=== PATIENT | male | born 1960 | race Asian ===

== ENCOUNTER 2020-03-12 08:21 | Emergency (ER) | payer MEDICARE, MEDICAID ==
[~2020-03-12] VITALS: Ht 157.5 cm; Wt 65.0 kg
[~2020-03-12 08:21] MED LIST: ASPI81TA30 PO; DILT-36 PO; FLO0.4C PO; MECL-159 PO
[2020-03-12] MEDS ORDERED: normal saline 1000ML IV soln IVB ONE (08:50)
[2020-03-12 09:09] LABS: HEMOGLOBIN 16.3 g/dl (14.0-17.9); PLATELET COUNT 155 X10'3 (140-440); WHITE BLOOD COUNT 5.9 X10'3 (4.5-11.0)
[2020-03-12 09:10] LABS: BASOPHILS % (AUTO) 0.6 % (0-1); EOSINOPHILS % (AUTO) 0.6 % (0-6); HEMATOCRIT 47.4 % (42.0-52.0); LYMPHOCYTES # (AUTO) 0.7 X10'3 (1.1-4.8); LYMPHOCYTES % (AUTO) 12.5 % (21-51); MEAN CORPUSCULAR HEMOGLOBIN 30.5 PG (27.0-31.0); MEAN CORPUSCULAR HGB CONC 34.3 g/dL (33.0-36.5); MEAN CORPUSCULAR VOLUME 88.9 FL (78-98); MONOCYTES # (AUTO) 0.6 X10'3 (0-0.9); MONOCYTES % (AUTO) 10.8 % (2-12); NEUTROPHILS # (AUTO) 4.5 X10'3 (1.8-7.7); NEUTROPHILS % (AUTO) 75.5 % (42-75); RED BLOOD COUNT 5.33 X10'6 (4.70-6.10); RED CELL DISTRIBUTION WIDTH 13.6 % (11.5-14.5)
[2020-03-12] MEDS ORDERED: ondansetron/PF 4mg/2ml inj IV ONE (09:10)
[2020-03-12 09:21] LABS: CLARITY,URINE CLEAR (Clear); COLOR,URINE YELLOW (Yellow); GLUCOSE, URINE NEGATIVE (Neg); KETONES,URINE TRACE mg/dl (Neg); LEUKOCYTE ESTERASE ,URINE NEGATIVE (Neg); NITRITES, URINE NEGATIVE (Neg); OCCULT BLOOD,URINE NEGATIVE (Neg); PROTEIN,URINE 30 mg/dl (Neg)
[2020-03-12 09:24] LABS: ALANINE AMINOTRANSFERASE 32 U/L (12-78); ALBUMIN 3.7 G/DL (3.4-5.0); ALKALINE PHOSPHATASE 59 IU/L (46-116); ANION GAP 10 (8-16); BILIRUBIN,TOTAL 0.4 MG/DL (0.1-1.0); BLOOD UREA NITROGEN 12 MG/DL (7-18); BUN/CREATININE RATIO 9.9 (5.4-32.0); CALCIUM 8.5 MG/DL (8.5-10.1); CHLORIDE 105 MMOL/L (99-107); CREATININE 1.21 MG/DL (0.60-1.10); GLUCOSE 130 MG/DL (70-104); SODIUM 140 MMOL/L (135-145); TOTAL CARBON DIOXIDE 24.7 MMOL/L (24-32); TOTAL PROTEIN 7.4 G/DL (6.4-8.2); eGFR 61 ML/MIN
[2020-03-12 09:25] LABS: UA COLLECTION TYPE CLN CATCH MIDSTREAM
[2020-03-12 09:27] LABS: BACTERIA,URINE FEW /HPF (Neg); HYALINE CASTS 0-3 /LPF (NEGATIVE); MUCUS STRANDS MODERATE /LPF (Neg); RBC,URINE NONE SEEN /HPF (0-2); SQUAMOUS EPITHELIAL CELL,UR FEW /LPF (FEW); WBC,URINE 0-4 /HPF (0-4)
[2020-03-12 09:38] LABS: C-REACTIVE PROTEIN 0.28 MG/DL (0.0-0.5); FERRITIN 823 NG/ML (26-388); MAGNESIUM 1.8 MG/DL (1.5-2.4)
[2020-03-12 09:40] LABS: ASPARTATE AMINO TRANSFERASE 27 U/L (10-37); LACTATE DEHYDROGENASE 230 U/L (85-227); POTASSIUM 3.8 MMOL/L (3.5-5.1)
--- NOTE | 2020-03-12 10:13 | NUR ---
pt is positive for covid 19.
[2020-03-12 11:15] VITALS: BP 110/74
== END 2020-03-12 11:00 | disposition home or self-care (01) ==
LOC: ER 08:22
DX: U07.1 COVID-19 (principal); R05 Cough; R50.9 Fever, unspecified; R10.84 Generalized abdominal pain; R19.7 Diarrhea, unspecified; R53.1 Weakness; R42 Dizziness and giddiness; R51.9 Headache, unspecified; I48.91 Unspecified atrial fibrillation; I10 Essential (primary) hypertension; G89.29 Other chronic pain; Z98.890 Other specified postprocedural states; Z88.1 Allergy status to other antibiotic agents; Z88.8 Allergy status to other drugs, medicaments and biological substances; Z79.82 Long term (current) use of aspirin; Z79.899 Other long term (current) drug therapy
CPT/HCPCS: 36415; 71045; 80053; 81001; 82728; 83605; 83615; 83735; 83880; 84145; 84484; 85025; 85384; 86140; 87040; 87635; 93005; 96361; 96374; 99285; C9803; J2405; J7030

== ENCOUNTER 2020-06-21 22:33 | Emergency (ER) | payer MEDICARE, MEDICAID ==
[~2020-06-21] VITALS: Ht 154.9 cm; Wt 68.2 kg
[2020-06-21 23:22] LABS: BASOPHILS % (AUTO) 0.4 % (0-1); EOSINOPHILS % (AUTO) 0.1 % (0-6); HEMATOCRIT 49.7 % (42.0-52.0); HEMOGLOBIN 16.9 g/dl (14.0-17.9); LYMPHOCYTES # (AUTO) 1.8 X10'3 (1.1-4.8); LYMPHOCYTES % (AUTO) 16.3 % (21-51); MEAN CORPUSCULAR HEMOGLOBIN 30.5 PG (27.0-31.0); MEAN CORPUSCULAR HGB CONC 34.1 g/dL (33.0-36.5); MEAN CORPUSCULAR VOLUME 89.4 FL (78-98); MEAN PLATELET VOLUME 7.3 FL (7.4-10.4); MONOCYTES # (AUTO) 0.9 X10'3 (0-0.9); MONOCYTES % (AUTO) 8.5 % (2-12); NEUTROPHILS # (AUTO) 8.1 X10'3 (1.8-7.7); NEUTROPHILS % (AUTO) 74.7 % (42-75); PLATELET COUNT 240 X10'3 (140-440); RED BLOOD COUNT 5.56 X10'6 (4.70-6.10); RED CELL DISTRIBUTION WIDTH 14.5 % (11.5-14.5); WHITE BLOOD COUNT 10.8 X10'3 (4.5-11.0)
[2020-06-21] MEDS ORDERED: mag hydrox/Alum hydrox/simeth 30ml oral suspension PO ONE (23:25)
[2020-06-21] MEDS ORDERED: normal saline 1000ML IV soln IVB ONE (23:25)
[2020-06-21] MEDS ORDERED: pantoprazole 40 MG vial IV ONE (23:25)
[2020-06-21] MEDS ORDERED: LIDOcaine Viscous 15ml cup MM ONE (23:25)
[2020-06-21 23:32] LABS: ALANINE AMINOTRANSFERASE 41 U/L (12-78); ALBUMIN 3.6 G/DL (3.4-5.0); ALKALINE PHOSPHATASE 57 IU/L (46-116); ANION GAP 7 (8-16); ASPARTATE AMINO TRANSFERASE 20 U/L (10-37); BILIRUBIN,TOTAL 0.4 MG/DL (0.1-1.0); BLOOD UREA NITROGEN 20 MG/DL (7-18); BUN/CREATININE RATIO 15.3 (5.4-32.0); CALCIUM 8.9 MG/DL (8.5-10.1); CHLORIDE 105 MMOL/L (99-107); CREATININE 1.31 MG/DL (0.60-1.10); GLUCOSE 141 MG/DL (70-104); POTASSIUM 3.8 MMOL/L (3.5-5.1); SODIUM 140 MMOL/L (135-145); TOTAL CARBON DIOXIDE 28.4 MMOL/L (24-32); TOTAL PROTEIN 7.3 G/DL (6.4-8.2); eGFR 56 ML/MIN
[2020-06-22 00:34] VITALS: BP 148/105
== END 2020-06-22 00:30 | disposition home or self-care (01) ==
LOC: ER 22:34
DX: R10.13 Epigastric pain (principal); R07.89 Other chest pain; R11.0 Nausea; R68.2 Dry mouth, unspecified; I48.91 Unspecified atrial fibrillation; I25.10 Atherosclerotic heart disease of native coronary artery without angina pectoris; I50.9 Heart failure, unspecified; E78.00 Pure hypercholesterolemia, unspecified; I25.2 Old myocardial infarction; G89.29 Other chronic pain; Z98.52 Vasectomy status; Z88.8 Allergy status to other drugs, medicaments and biological substances; Z79.82 Long term (current) use of aspirin; Z79.899 Other long term (current) drug therapy
CPT/HCPCS: 36415; 71045; 80053; 83880; 84484; 85025; 93005; 96374; 99285; C9113; J7030

== ENCOUNTER 2021-08-26 02:02 | Inpatient (IN) | payer MEDICARE, MEDICAID ==
[~2021-08-26] VITALS: Ht 157.5 cm; Wt 68.2 kg
[2021-08-26 03:04] LABS: BASOPHILS % (AUTO) 0.6 % (0-1); EOSINOPHILS # (AUTO) 0.2 X10'3 (0-0.9); EOSINOPHILS % (AUTO) 2.5 % (0-6); HEMATOCRIT 46.1 % (42.0-52.0); HEMOGLOBIN 15.8 g/dl (14.0-17.9); LYMPHOCYTES % (AUTO) 30.7 % (21-51); MEAN CORPUSCULAR HGB CONC 34.3 g/dL (33.0-36.5); MEAN CORPUSCULAR VOLUME 90.3 FL (78-98); MEAN PLATELET VOLUME 7.7 FL (7.4-10.4); MONOCYTES # (AUTO) 0.7 X10'3 (0-0.9); MONOCYTES % (AUTO) 10.2 % (2-12); NEUTROPHILS # (AUTO) 3.7 X10'3 (1.8-7.7); PLATELET COUNT 221 X10'3 (140-440); RED CELL DISTRIBUTION WIDTH 13.6 % (11.5-14.5); WHITE BLOOD COUNT 6.6 X10'3 (4.5-11.0)
[2021-08-26] MEDS ORDERED: mag hydrox/Alum hydrox/simeth 30ml oral suspension PO ONE (03:10)
[2021-08-26] MEDS ORDERED: LIDOcaine Viscous 15ml cup MM ONE (03:10)
[2021-08-26] MEDS ORDERED: nitroGLYCERIN 0.2mg/hour patch TD ONE (03:15)
[2021-08-26] MEDS ORDERED: aspirin 81mg tab.chew PO ONE (03:15)
[2021-08-26 03:41] LABS: ALANINE AMINOTRANSFERASE 23 U/L (12-78); ALBUMIN 3.8 G/DL (3.4-5.0); ALBUMIN/GLOBULIN RATIO 1.1 (1.1-1.5); ALKALINE PHOSPHATASE 48 IU/L (46-116); ANION GAP 4 (8-16); ASPARTATE AMINO TRANSFERASE 12 U/L (10-37); BILIRUBIN,TOTAL 0.6 MG/DL (0.1-1.0); BLOOD UREA NITROGEN 18 MG/DL (7-18); BUN/CREATININE RATIO 15.3 (5.4-32.0); CALCIUM 8.9 MG/DL (8.5-10.1); CHLORIDE 106 MMOL/L (99-107); CREATININE 1.18 MG/DL (0.60-1.10); GLUCOSE 99 MG/DL (70-104); POTASSIUM 3.5 MMOL/L (3.5-5.1); SODIUM 140 MMOL/L (135-145); TOTAL CARBON DIOXIDE 29.6 MMOL/L (24-32); TOTAL PROTEIN 7.2 G/DL (6.4-8.2); eGFR 63 ML/MIN
[2021-08-26 03:50] LABS: ETHANOL < 0.010 GM/DL (0.0-0.010)
[2021-08-26 04:00] LABS: C-REACTIVE PROTEIN < 0.05 MG/DL (0.0-0.5)
[2021-08-26] MEDS ORDERED: pantoprazole 40 MG vial IV SCH (04:20)
[2021-08-26] MEDS ORDERED: pantoprazole 40MG/NS 100ML BAG 100 ML IV ONE (04:20)
[2021-08-26] MEDS ORDERED: normal saline 1000ML IV soln IVB ONE (04:40)
[2021-08-26] MEDS ORDERED: enoxaparin 100mg/ml syringe SUBCUT ONE (04:40)
[2021-08-26] MEDS ORDERED: normal saline 1000ml 1,000 ML IV ONE (04:40)
[2021-08-26] MEDS ORDERED: enoxaparin 80mg/0.8ml syringe SUBCUT ONE (04:45)
[2021-08-26] MEDS ORDERED: mag hydrox/Alum hydrox/simeth 30ml oral suspension PO PRN (05:15)
[2021-08-26] MEDS ORDERED: magnesium hydroxide 30ml (MOM) UD suspension PO PRN (05:15)
[2021-08-26] MEDS ORDERED: morphine 2 MG/ML inj. syringe IV PRN (05:15)
[2021-08-26] MEDS ORDERED: acetaminophen 325mg tablet PO PRN (05:15)
[2021-08-26 07:22] LABS: URINE AMPHETAMINE SCREEN NEGATIVE (Neg); URINE BARBITUATE SCREEN NEGATIVE (Neg); URINE BENZODIAZEPINES SCREEN NEGATIVE (Neg); URINE CANNABINOID SCREEN POSITIVE (Neg); URINE COCAINE SCREEN NEGATIVE (Neg); URINE METHADONE SCREEN NEGATIVE (Neg); URINE OPIATE SCREEN NEGATIVE (Neg); URINE PHENCYCLIDINE SCREEN NEGATIVE (Neg)
--- NOTE | 2021-08-26 08:23 | NUR ---
Patient's will bring in patient's home medications.
[2021-08-26] MEDS ORDERED: METO-395 PO (09:19)
[2021-08-26] MEDS ORDERED: FINA5TAB11 PO (09:19)
[2021-08-26] MEDS ORDERED: OMEP40CA21 PO (09:19)
[2021-08-26] MEDS ORDERED: APIX5TAB3 PO (09:19)
[2021-08-26] MEDS: pantoprazole 40mg Tablet.DR PO SCH ×2 (09:52→20:18)
[2021-08-26] MEDS: docusate sod 100mg capsule PO SCH ×2 (09:52→20:00)
[2021-08-26] MEDS ORDERED: iohexol 300 MG/1 ML 50ml polymer ONE ×2 (10:06)
[2021-08-26] MEDS ORDERED: BENZ-49 PO (10:40)
[2021-08-26] MEDS ORDERED: HYDR-3964 PO (10:40)
[2021-08-26] MEDS ORDERED: pneumococcal 23-VAL P-sac vacc 25 mcg/0.5ml vial IMVAC ONE (12:00)
--- NOTE | 2021-08-26 12:35 | NUR ---
paged dr. mccollum, in room waiting to talk to
[2021-08-26] MEDS ORDERED: ATOR40TA72 PO (13:25)
[2021-08-26 14:18] LABS: AMYLASE 91 U/L (25-115); CHOL/HDL RATIO 5.1 (0.00-4.99); CHOLESTEROL 198 MG/DL (0-200); HDL CHOLESTEROL 39 MG/DL (35-60); LDL CHOLESTEROL 95 MG/DL (50-100); TRIGLYCERIDES 251 MG/DL (20-135)
[2021-08-26] MEDS ORDERED: benzonatate 100mg capsule PO PRN (16:20)
[2021-08-26] MEDS ORDERED: HYDROcodone/acetaminophen 5mg/325mg tablet PO PRN (16:20)
[2021-08-26] MEDS: acetaminophen 325mg tablet PO PRN (17:07)
--- NOTE | 2021-08-26 18:52 | NUR ---
Pt to MRI.
[2021-08-26] MEDS: apixaban 5mg tablet PO SCH (20:18)
--- NOTE | 2021-08-26 21:12 | NUR ---
Attempted to call Ortho to give report an hour ago. RN was busy and told to call back. This RN is attempting to reach the floor again with no success.
[2021-08-26 21:51] VITALS: BP 115/79
[2021-08-27] MEDS: morphine 2 MG/ML inj. syringe IV PRN ×3 (05:56→16:31)
[2021-08-27 06:00] VITALS: BP_SYST 115; BP_SYST 121; BP_DIAS 60; BP_DIAS 88
[2021-08-27 06:23] LABS: BASOPHILS % (AUTO) 0.3 % (0-1); EOSINOPHILS # (AUTO) 0.1 X10'3 (0-0.9); EOSINOPHILS % (AUTO) 1.9 % (0-6); HEMATOCRIT 42.4 % (42.0-52.0); HEMOGLOBIN 14.5 g/dl (14.0-17.9); LYMPHOCYTES # (AUTO) 1.4 X10'3 (1.1-4.8); LYMPHOCYTES % (AUTO) 18.8 % (21-51); MEAN CORPUSCULAR HEMOGLOBIN 30.8 PG (27.0-31.0); MEAN CORPUSCULAR HGB CONC 34.2 g/dL (33.0-36.5); MEAN CORPUSCULAR VOLUME 90.1 FL (78-98); MEAN PLATELET VOLUME 7.8 FL (7.4-10.4); MONOCYTES # (AUTO) 0.8 X10'3 (0-0.9); MONOCYTES % (AUTO) 10.3 % (2-12); NEUTROPHILS # (AUTO) 5.1 X10'3 (1.8-7.7); NEUTROPHILS % (AUTO) 68.7 % (42-75); PLATELET COUNT 204 X10'3 (140-440); RED BLOOD COUNT 4.71 X10'6 (4.70-6.10); RED CELL DISTRIBUTION WIDTH 13.5 % (11.5-14.5); WHITE BLOOD COUNT 7.4 X10'3 (4.5-11.0)
[2021-08-27 06:43] LABS: ALBUMIN 3.5 G/DL (3.4-5.0); ANION GAP 3 (8-16); BLOOD UREA NITROGEN 13 MG/DL (7-18); BUN/CREATININE RATIO 10.6 (5.4-32.0); CALCIUM 8.3 MG/DL (8.5-10.1); CHLORIDE 110 MMOL/L (99-107); CREATININE 1.23 MG/DL (0.60-1.10); GLUCOSE 93 MG/DL (70-104); POTASSIUM 3.8 MMOL/L (3.5-5.1); SODIUM 143 MMOL/L (135-145); TOTAL CARBON DIOXIDE 30.4 MMOL/L (24-32); eGFR 60 ML/MIN
[2021-08-27] MEDS: ondansetron/PF 4mg/2ml inj IV PRN ×2 (06:43→21:41)
[2021-08-27] MEDS: pantoprazole 40mg Tablet.DR PO SCH ×3 (07:30→08:00)
[2021-08-27] MEDS: finasteride 5mg tablet PO SCH (07:53)
[2021-08-27] MEDS: metoprolol succinate 25mg (24-HOUR) SR. Tablet PO SCH (07:53)
[2021-08-27] MEDS: atorvastatin 20mg tablet PO SCH (07:55)
[2021-08-27] MEDS: docusate sod 100mg capsule PO SCH ×2 (07:55→19:51)
[2021-08-27] MEDS: apixaban 5mg tablet PO SCH (08:00)
[2021-08-27] MEDS: aspirin 81mg tab.chew PO SCH (08:30)
[2021-08-27] MEDS ORDERED: NORMAL SALINE IV ONE (09:00)
[2021-08-27] MEDS ORDERED: SINCALIDE IV ONE (09:00)
[2021-08-27 09:19] LABS: ALANINE AMINOTRANSFERASE 20 U/L (12-78); ALBUMIN/GLOBULIN RATIO 1.1 (1.1-1.5); ALKALINE PHOSPHATASE 44 IU/L (46-116); ASPARTATE AMINO TRANSFERASE 15 U/L (10-37); BILIRUBIN,DIRECT 0.2 MG/DL (0-0.3); BILIRUBIN,TOTAL 0.8 MG/DL (0.1-1.0); TOTAL PROTEIN 6.7 G/DL (6.4-8.2)
--- NOTE | 2021-08-27 09:20 | NUR ---
Informed Dr. summers of holding Eliquis and Aspirin for any possible procedures.
[2021-08-27 10:00] VITALS: BP 114/78
--- NOTE | 2021-08-27 13:00 | NUR ---
Pt transferred to [facility] via w/c.
--- NOTE | 2021-08-27 15:40 | NUR ---
Pt transferred back from [facility] to via w/c to bed. Pt hungry and would like to eat. Dr. Ely paged for pt request.
[2021-08-27] MEDS: piperacillin/tazo 3.375gm/50ml 50 ML IV SCH ×2 (16:02→23:45)
[2021-08-27 17:00] VITALS: BP 124/79
[2021-08-27] MEDS: dextrose 5%-water 1,000 ML IV SCH (17:55)
[2021-08-27] MEDS: HYDROcodone/acetaminophen 5mg/325mg tablet PO PRN (19:13)
--- NOTE | 2021-08-27 19:24 | NUR ---
Patient in room ORTHO 4012. I have received report from DAVID Diez and had the opportunity to ask questions and assume patient care.
[2021-08-27] MEDS: pantoprazole 40MG/NS 100ML BAG 100 ML IV SCH (19:51)
[2021-08-27 22:00] VITALS: BP 118/71
[2021-08-28] VITALS (9 sets, daily range): BP systolic 107–129; BP diastolic 68–87
[2021-08-28] MEDS: HYDROcodone/acetaminophen 5mg/325mg tablet PO PRN ×4 (03:36→23:34)
[2021-08-28] MEDS: dextrose 5%-water 1,000 ML IV SCH ×2 (04:07→13:40)
[2021-08-28 06:11] LABS: H PYLORI ANTIBODY NEGATIVE (Neg)
[2021-08-28 06:20] LABS: BASOPHILS % (AUTO) 0.3 % (0-1); EOSINOPHILS # (AUTO) 0.2 X10'3 (0-0.9); EOSINOPHILS % (AUTO) 1.8 % (0-6); HEMATOCRIT 42.7 % (42.0-52.0); HEMOGLOBIN 14.5 g/dl (14.0-17.9); LYMPHOCYTES # (AUTO) 1.2 X10'3 (1.1-4.8); LYMPHOCYTES % (AUTO) 14.3 % (21-51); MEAN CORPUSCULAR HEMOGLOBIN 30.5 PG (27.0-31.0); MEAN CORPUSCULAR HGB CONC 33.9 g/dL (33.0-36.5); MEAN CORPUSCULAR VOLUME 89.8 FL (78-98); MEAN PLATELET VOLUME 7.9 FL (7.4-10.4); NEUTROPHILS # (AUTO) 5.9 X10'3 (1.8-7.7); NEUTROPHILS % (AUTO) 71.6 % (42-75); PLATELET COUNT 195 X10'3 (140-440); RED BLOOD COUNT 4.76 X10'6 (4.70-6.10); RED CELL DISTRIBUTION WIDTH 13.6 % (11.5-14.5); WHITE BLOOD COUNT 8.2 X10'3 (4.5-11.0)
--- NOTE | 2021-08-28 06:23 | NUR ---
Problems reprioritized. Patient report given, questions answered & plan of care reviewed with DAVID Bowman.
--- NOTE | 2021-08-28 06:30 | NUR ---
Patient in room ORTHO 4012. I have received report from Janet Linder and had the opportunity to ask questions and assume patient care.
[2021-08-28 06:32] LABS: ALBUMIN 3.3 G/DL (3.4-5.0); ANION GAP 7 (8-16); BLOOD UREA NITROGEN 8 MG/DL (7-18); BUN/CREATININE RATIO 6.3 (5.4-32.0); CALCIUM 8.6 MG/DL (8.5-10.1); CHLORIDE 105 MMOL/L (99-107); CREATININE 1.26 MG/DL (0.60-1.10); GLUCOSE 120 MG/DL (70-104); POTASSIUM 3.4 MMOL/L (3.5-5.1); SODIUM 139 MMOL/L (135-145); TOTAL CARBON DIOXIDE 26.9 MMOL/L (24-32); eGFR 58 ML/MIN
[2021-08-28] MEDS: ondansetron/PF 4mg/2ml inj IV PRN ×2 (07:40→15:50)
[2021-08-28] MEDS: atorvastatin 20mg tablet PO SCH (07:41)
[2021-08-28] MEDS: piperacillin/tazo 3.375gm/50ml 50 ML IV SCH ×2 (07:41→17:28)
[2021-08-28] MEDS: docusate sod 100mg capsule PO SCH ×2 (07:41→19:54)
[2021-08-28] MEDS: pantoprazole 40MG/NS 100ML BAG 100 ML IV SCH ×2 (07:41→21:26)
[2021-08-28] MEDS ORDERED: fentaNYL/PF 50MCG/1 ML 2ML syringe ONE (08:00)
[2021-08-28] MEDS ORDERED: MIDAZolam 1 MG/ML 5ML VIAL ONE (08:00)
[2021-08-28] MEDS ORDERED: LIDOcaine Viscous 15ml cup ONE (08:00)
[2021-08-28] MEDS: aspirin 81mg tab.chew PO SCH (08:30)
[2021-08-28] MEDS: finasteride 5mg tablet PO SCH (10:01)
[2021-08-28] MEDS: metoprolol succinate 25mg (24-HOUR) SR. Tablet PO SCH (10:03)
[2021-08-28 10:58] LABS: ALANINE AMINOTRANSFERASE 19 U/L (12-78); ALBUMIN/GLOBULIN RATIO 0.9 (1.1-1.5); ALKALINE PHOSPHATASE 49 IU/L (46-116); ASPARTATE AMINO TRANSFERASE 15 U/L (10-37); BILIRUBIN,DIRECT 0.2 MG/DL (0-0.3); BILIRUBIN,TOTAL 1.4 MG/DL (0.1-1.0); TOTAL PROTEIN 6.9 G/DL (6.4-8.2)
[2021-08-28] MEDS ORDERED: magnesium 2GM in 50ml NS 50 ML IV PRN (12:10)
[2021-08-28] MEDS ORDERED: potassium CL 10mEq/100ml bag 100 ML IV PRN (12:10)
[2021-08-28] MEDS ORDERED: magnesium 4gm in 100ml NS 100 ML IV PRN (12:10)
[2021-08-28] MEDS ORDERED: POTASSIUM BICARB 20meq eff tab 20 MEQ TABLET.EFF PO PRN (12:10)
[2021-08-28] MEDS ORDERED: magnesium Cl slow-release 64mg tablet PO PRN (12:10)
[2021-08-28 12:34] LABS: MAGNESIUM 2.4 MG/DL (1.5-2.4)
[2021-08-28] MEDS: POTASSIUM BICARB 20meq eff tab 20 MEQ TABLET.EFF PO PRN ×2 (12:45→19:54)
[2021-08-28] MEDS: metoclopramide 5 mg/ml inj IV PRN (12:50)
--- NOTE | 2021-08-28 17:30 | NUR ---
Patient and patient's very upset. Wanting to know why the patient is still NPO. Feeling attacked that they do not have an answer yet. RN paged and called Dr. Schroeder's phone and only received the voicemail, which the RN left a message. RN then page Dr. Cochran a second time to see if he had talked to Dr. Schroeder. RN informed the patient and patient's that RN has tried multiple times in reaching out. Patient's states that she feel discriminated against, and would like to talk to the charge nurse. The charge nurse came to bedside and talk about the plan. Charge nurse also paged Dr. Cochran, and Dr. Cochran said that if the patient would like to leave, it would be AMA. Charge nurse was able to get a hold of Dr. Schroeder and Dr. Schroeder said he is rounding tonight.
--- NOTE | 2021-08-28 18:30 | NUR ---
Patient in room ORTHO 4012. I have received report from DAVID Bowman and had the opportunity to ask questions and assume patient care.
[2021-08-28] MEDS: K and/or MAG REPLACEMENT MC SCH (20:00)
[2021-08-28] MEDS: diatr meglu/diatrizoate 30ml oral sol.-(3 dose) bottle PO SCH (21:26)
[2021-08-29] MEDS: POTASSIUM BICARB 20meq eff tab 20 MEQ TABLET.EFF PO PRN (00:12)
[2021-08-29] MEDS: piperacillin/tazo 3.375gm/50ml 50 ML IV SCH ×3 (00:12→16:21)
[2021-08-29] MEDS: HYDROcodone/acetaminophen 10/325mg tab PO PRN (03:22)
[2021-08-29] MEDS: dextrose 5%-water 1,000 ML IV SCH ×3 (03:24→16:22)
[2021-08-29 06:00] VITALS: BP 107/70
--- NOTE | 2021-08-29 06:31 | NUR ---
Problems reprioritized. Patient report given, questions answered & plan of care reviewed with DAVID Mendiola.
--- NOTE | 2021-08-29 06:53 | NUR ---
Patient in room ORTHO 4012. I have received report from Janet HERNANDEZ and had the opportunity to ask questions and assume patient care.
[2021-08-29] MEDS: metoprolol succinate 25mg (24-HOUR) SR. Tablet PO SCH (07:30)
[2021-08-29] MEDS: docusate sod 100mg capsule PO SCH ×2 (07:30→20:00)
[2021-08-29] MEDS: atorvastatin 20mg tablet PO SCH (07:31)
[2021-08-29] MEDS: diatr meglu/diatrizoate 30ml oral sol.-(3 dose) bottle PO SCH ×2 (07:31→09:31)
[2021-08-29] MEDS: finasteride 5mg tablet PO SCH (07:31)
[2021-08-29] MEDS: pantoprazole 40MG/NS 100ML BAG 100 ML IV SCH ×2 (07:34→20:17)
[2021-08-29] MEDS: K and/or MAG REPLACEMENT MC SCH ×2 (08:00→20:00)
[2021-08-29] MEDS: aspirin 81mg tab.chew PO SCH (08:30)
[2021-08-29] MEDS: ondansetron/PF 4mg/2ml inj IV PRN (09:25)
[2021-08-29] MEDS: HYDROcodone/acetaminophen 5mg/325mg tablet PO PRN ×3 (10:19→20:45)
[2021-08-29 10:26] VITALS: BP 120/80
[2021-08-29 10:28] LABS: BASOPHILS % (AUTO) 0.3 % (0-1); EOSINOPHILS # (AUTO) 0.2 X10'3 (0-0.9); EOSINOPHILS % (AUTO) 2.3 % (0-6); HEMATOCRIT 42.6 % (42.0-52.0); HEMOGLOBIN 14.4 g/dl (14.0-17.9); LYMPHOCYTES # (AUTO) 1.2 X10'3 (1.1-4.8); LYMPHOCYTES % (AUTO) 16.9 % (21-51); MEAN CORPUSCULAR HEMOGLOBIN 30.9 PG (27.0-31.0); MEAN CORPUSCULAR HGB CONC 33.8 g/dL (33.0-36.5); MEAN CORPUSCULAR VOLUME 91.3 FL (78-98); MEAN PLATELET VOLUME 7.8 FL (7.4-10.4); MONOCYTES # (AUTO) 0.7 X10'3 (0-0.9); NEUTROPHILS # (AUTO) 5.2 X10'3 (1.8-7.7); NEUTROPHILS % (AUTO) 70.5 % (42-75); PLATELET COUNT 199 X10'3 (140-440); RED BLOOD COUNT 4.67 X10'6 (4.70-6.10); RED CELL DISTRIBUTION WIDTH 13.5 % (11.5-14.5); WHITE BLOOD COUNT 7.3 X10'3 (4.5-11.0)
[2021-08-29 10:35] LABS: ALANINE AMINOTRANSFERASE 19 U/L (12-78); ALBUMIN 3.1 G/DL (3.4-5.0); ALBUMIN/GLOBULIN RATIO 0.8 (1.1-1.5); ALKALINE PHOSPHATASE 45 IU/L (46-116); ANION GAP 6 (8-16); ASPARTATE AMINO TRANSFERASE 17 U/L (10-37); BLOOD UREA NITROGEN 7 MG/DL (7-18); BUN/CREATININE RATIO 5.4 (5.4-32.0); CALCIUM 8.4 MG/DL (8.5-10.1); CHLORIDE 106 MMOL/L (99-107); CREATININE 1.29 MG/DL (0.60-1.10); GLUCOSE 127 MG/DL (70-104); MAGNESIUM 2.3 MG/DL (1.5-2.4); POTASSIUM 3.9 MMOL/L (3.5-5.1); SODIUM 141 MMOL/L (135-145); TOTAL PROTEIN 6.9 G/DL (6.4-8.2); eGFR 57 ML/MIN
--- NOTE | 2021-08-29 11:06 | NUR ---
PAGER ID: [phone] MESSAGE: Maury Kohler [phone] re: [id number] Patient Ab CT is posted with results and patient would really like to eat if he could. Thanks
[2021-08-29] MEDS: metoclopramide 5 mg/ml inj IV PRN (12:40)
[2021-08-29 18:00] VITALS: BP 109/67
--- NOTE | 2021-08-29 18:22 | NUR ---
Problems reprioritized. Patient report given, questions answered & plan of care reviewed with Madalyn HERNANDEZ/Leah DUNHAM.
[2021-08-29 22:00] VITALS: BP 107/70
[2021-08-30] VITALS (19 sets, daily range): BP systolic 112–154; BP diastolic 76–109
[2021-08-30] MEDS: piperacillin/tazo 3.375gm/50ml 50 ML IV SCH ×4 (00:52→16:40)
[2021-08-30] MEDS: HYDROcodone/acetaminophen 10/325mg tab PO PRN ×2 (00:52→23:21)
[2021-08-30] MEDS: dextrose 5%-water 1,000 ML IV SCH ×2 (00:59→13:38)
[2021-08-30] MEDS: ondansetron/PF 4mg/2ml inj IV PRN ×4 (03:13→21:00)
[2021-08-30 06:50] LABS: BASOPHILS % (AUTO) 0.6 % (0-1); EOSINOPHILS # (AUTO) 0.3 X10'3 (0-0.9); EOSINOPHILS % (AUTO) 4.4 % (0-6); HEMATOCRIT 43.6 % (42.0-52.0); HEMOGLOBIN 14.7 g/dl (14.0-17.9); LYMPHOCYTES # (AUTO) 1.6 X10'3 (1.1-4.8); LYMPHOCYTES % (AUTO) 26.8 % (21-51); MEAN CORPUSCULAR HEMOGLOBIN 30.7 PG (27.0-31.0); MEAN CORPUSCULAR HGB CONC 33.8 g/dL (33.0-36.5); MEAN CORPUSCULAR VOLUME 90.8 FL (78-98); MEAN PLATELET VOLUME 7.6 FL (7.4-10.4); MONOCYTES # (AUTO) 0.6 X10'3 (0-0.9); MONOCYTES % (AUTO) 10.5 % (2-12); NEUTROPHILS # (AUTO) 3.4 X10'3 (1.8-7.7); NEUTROPHILS % (AUTO) 57.7 % (42-75); PLATELET COUNT 208 X10'3 (140-440); RED CELL DISTRIBUTION WIDTH 13.7 % (11.5-14.5); WHITE BLOOD COUNT 5.8 X10'3 (4.5-11.0)
[2021-08-30] MEDS ORDERED: SIMETHICONE/SOD BICARB/CIT AC PACKET PO ONE (07:00)
[2021-08-30] MEDS ORDERED: barium sulfate 450ml oral suspension ONE (07:00)
[2021-08-30 07:12] LABS: ALANINE AMINOTRANSFERASE 19 U/L (12-78); ALBUMIN 3.2 G/DL (3.4-5.0); ALBUMIN/GLOBULIN RATIO 0.8 (1.1-1.5); ALKALINE PHOSPHATASE 45 IU/L (46-116); ANION GAP 8 (8-16); ASPARTATE AMINO TRANSFERASE 14 U/L (10-37); BILIRUBIN,TOTAL 0.6 MG/DL (0.1-1.0); BLOOD UREA NITROGEN 9 MG/DL (7-18); BUN/CREATININE RATIO 6.3 (5.4-32.0); CALCIUM 8.3 MG/DL (8.5-10.1); CHLORIDE 107 MMOL/L (99-107); CREATININE 1.42 MG/DL (0.60-1.10); GLUCOSE 116 MG/DL (70-104); MAGNESIUM 2.2 MG/DL (1.5-2.4); POTASSIUM 3.5 MMOL/L (3.5-5.1); SODIUM 141 MMOL/L (135-145); eGFR 51 ML/MIN
[2021-08-30] MEDS: docusate sod 100mg capsule PO SCH ×2 (08:00→20:00)
[2021-08-30] MEDS: K and/or MAG REPLACEMENT MC SCH ×2 (08:00→20:00)
[2021-08-30] MEDS: aspirin 81mg tab.chew PO SCH (08:30)
[2021-08-30] MEDS: pantoprazole 40MG/NS 100ML BAG 100 ML IV SCH (08:45)
[2021-08-30] MEDS: atorvastatin 20mg tablet PO SCH (08:49)
[2021-08-30] MEDS: metoprolol succinate 25mg (24-HOUR) SR. Tablet PO SCH (08:50)
[2021-08-30] MEDS: finasteride 5mg tablet PO SCH (08:50)
[2021-08-30] MEDS: HYDROcodone/acetaminophen 5mg/325mg tablet PO PRN ×2 (09:44→16:40)
--- NOTE | 2021-08-30 11:18 | NUR ---
Initial: Pt admitted w/ epigastric pain and possible posterior duodenal ulcer per EMR. EGD had negative findings. Currently on regular diet w/ avg intake 45% x 5 meals not meeting needs. Pt still complaining of stomach pains per MD note. Will provide smoothies/shakes BID to help meet nutrient needs. Pt also receiving D5 at 100ml/hr providing an additional 408kcals/day. LBM 08/27. Will continue to monitor. Recs: 1. Continue Regular diet as tolerated 2. Smoothie WB, Shake WS 3. Bowel care per rx 4. Scaled wts this admit Addendum: 08/30/21 at [address] Amended: Links added.
--- NOTE | 2021-08-30 11:29 | NUR ---
Spoke with surgeon about patient diagnostic study and if it was necessary for patient to remain NPO at this time. Surgeon said it was okay to feed patient and he will make rounds on patients later on during the day.
[2021-08-30] MEDS: acetaminophen 325mg tablet PO PRN (11:38)
[2021-08-30] MEDS ORDERED: INDOCYANINE GREEN 25 MG/10 ML VIAL IV ONE (17:40)
[2021-08-30] MEDS ORDERED: BUPIVAcaine 0.5% inj/PF 30 ML ONE (17:46)
[2021-08-30] MEDS ORDERED: morphine 2 MG/ML inj. syringe IV PRN (17:50)
[2021-08-30] MEDS ORDERED: ringers solution, lacted 1,000 ML IV SCH (17:50)
[2021-08-30] MEDS ORDERED: labetalol 20mg/4ml (5mg/ml) syringe IV PRN (17:50)
[2021-08-30] MEDS ORDERED: hydrALAZINE 20mg/ml inj. IV PRN (17:50)
[2021-08-30] MEDS ORDERED: fentaNYL/PF 50MCG/1 ML 2ML syringe IV PRN (17:50)
--- NOTE | 2021-08-30 18:50 | NUR ---
Pt to OR via bed
[2021-08-30] MEDS ORDERED: fentaNYL/PF 50MCG/1 ML 2ML syringe ONE (18:52)
[2021-08-30] MEDS ORDERED: dexamethasone sod phosphate 4mg/ml inj. ONE (18:54)
[2021-08-30] MEDS ORDERED: LIDOcaine 2% (20mg/ml) 5ml vial ONE (18:54)
[2021-08-30] MEDS ORDERED: propofol 10mg/ml 20ml vial IV ONE (18:54)
[2021-08-30] MEDS ORDERED: rocuronium bromide 100mg/10ml (10mg/ml) injection IV ONE (18:54)
[2021-08-30] MEDS ORDERED: ondansetron/PF 4mg/2ml inj ONE (18:55)
[2021-08-30] MEDS ORDERED: sevoflurane 250ml liquid IH ONE (19:04)
[2021-08-30] MEDS ORDERED: desflurane 240ml liquid inh. IH ONE (19:04)
[2021-08-30] MEDS ORDERED: neostigmine methylsulfate 1 MG/ML 10ml vial ONE (19:04)
[2021-08-30] MEDS ORDERED: glycopyrrolate 0.2mg/ml inj ONE (19:04)
[2021-08-30] MEDS: pantoprazole 40mg Tablet.DR PO SCH (20:00)
[2021-08-30] MEDS ORDERED: naloxone 0.4 mg/ml inj IV PRN (20:45)
[2021-08-30] MEDS ORDERED: HYDROcodone/acetaminophen 10/325mg tab PO PRN (20:45)
[2021-08-30] MEDS ORDERED: ondansetron/PF 4mg/2ml inj IV PRN (20:45)
--- NOTE | 2021-08-30 20:53 | NUR ---
Received from OR via , accompanied by Anesthesiologist DR RUSSO and report given by Anesthesiolgist. PT WAKING UP, MOVING EXT X 4, SKIN WARM AND PINK, PIV PATENT 20G RIGHT WRIST, SCD'S, MIRNA DRAIN WITH SERSANQ DRAINAGE, 3 BA'S WITH STERI STRIPS CD, NO C/O PAIN, VSS.
[2021-08-30] MEDS: morphine 4 MG/ML inj SYRINge IV PRN ×2 (20:59→21:10)
[2021-08-30] MEDS: fentaNYL/PF 50MCG/1 ML 2ML syringe IV PRN ×2 (21:19→21:29)
--- NOTE | 2021-08-30 21:38 | NUR ---
PT CONTINUES TO C/O 10/10 PAIN AT UPPER LAP SITE DESPITE FENTANYL AND MORPHINE. VITAL SIGNS ARE IMPROVING WITH A LOWER BP. REPOSITIONED PATIENT, ABD SOFT.
[2021-08-30] MEDS ORDERED: acetaminophen 1,000mg/100ml IV 100 ML IV SCH (21:45)
[2021-08-30] MEDS ORDERED: ketamine 50mg/5ml syringe IV ONE (21:45)
--- NOTE | 2021-08-30 21:47 | NUR ---
SPOKE WITH DR RUSSO REGARDING PAIN MANAGEMENT. NEW ORDERS RECEIVED AND ENTERED.
[2021-08-30] MEDS: morphine 2 MG/ML inj. syringe IV PRN (21:55)
[2021-08-30] MEDS ORDERED: ketamine 50 mg/ml 10ml vial IV ONE (22:00)
--- NOTE | 2021-08-30 22:23 | NUR ---
Report called to receiving nurse. Transferred via [facility]ED [facility]ongings . Special Issues communicated to receiving nurse KERRY HERNANDEZ. PT IS ALERT, DOUGLAS WATER, PIV PATENT WITH LR 100ML/HR, BA'S CD, ABD SOFT, MIRNA DRAIN WITH SEROSANQ DRAINAGE, SCD'S, PAIN HAS DIMINISHED WITH IV PAIN MEDICATION AND PT IS RESTING MORE QUIETLY. PT MEETS DISCHARGE CRITERA.
--- NOTE | 2021-08-30 22:35 | NUR ---
Received report from Mabel HERNANDEZ from recovery, patient asleep, easily aroused, IV intact, 4 abdominal lap sites, no swelling, clean dry and intact, no drainage, Song drain x1 right abdominal 50cc output serosanguineous, post op vital sign monitor. Patient denies pain right now, will continue to monitor. at bedside.
[2021-08-31] MEDS: ceFOXitin inj 1,000 MG in normal saline 100ml IV soln 100 ML IV SCH ×2 (00:06→08:02)
[2021-08-31 00:20] VITALS: BP 120/84
[2021-08-31 00:50] VITALS: BP 131/94
[2021-08-31] MEDS: piperacillin/tazo 3.375gm/50ml 50 ML IV SCH ×2 (00:59→10:50)
[2021-08-31 01:20] VITALS: BP 149/102
[2021-08-31] MEDS: morphine 2 MG/ML inj. syringe IV PRN (02:02)
[2021-08-31 02:20] VITALS: BP 127/82
[2021-08-31] MEDS: HYDROcodone/acetaminophen 10/325mg tab PO PRN ×2 (04:17→08:00)
--- NOTE | 2021-08-31 05:05 | NUR ---
Patient walk 1 alp around the unit Addendum: 08/31/21 at 0516 by Vida Sheth RN Patient walked one lap around the unit.
[2021-08-31 06:00] VITALS: BP 132/83
--- NOTE | 2021-08-31 06:00 | NUR ---
agree with magdalene strong's physical assessment.
[2021-08-31 06:34] LABS: BASOPHILS % (AUTO) 0.1 % (0-1); EOSINOPHILS % (AUTO) 0 % (0-6); HEMATOCRIT 45.6 % (42.0-52.0); HEMOGLOBIN 15.7 g/dl (14.0-17.9); LYMPHOCYTES # (AUTO) 0.7 X10'3 (1.1-4.8); LYMPHOCYTES % (AUTO) 13.4 % (21-51); MEAN CORPUSCULAR HEMOGLOBIN 30.9 PG (27.0-31.0); MEAN CORPUSCULAR HGB CONC 34.4 g/dL (33.0-36.5); MEAN CORPUSCULAR VOLUME 89.8 FL (78-98); MEAN PLATELET VOLUME 7.6 FL (7.4-10.4); MONOCYTES # (AUTO) 0.2 X10'3 (0-0.9); NEUTROPHILS # (AUTO) 4.6 X10'3 (1.8-7.7); NEUTROPHILS % (AUTO) 83.5 % (42-75); PLATELET COUNT 239 X10'3 (140-440); RED BLOOD COUNT 5.08 X10'6 (4.70-6.10); RED CELL DISTRIBUTION WIDTH 13.2 % (11.5-14.5); WHITE BLOOD COUNT 5.5 X10'3 (4.5-11.0)
[2021-08-31 06:49] LABS: ALANINE AMINOTRANSFERASE 26 U/L (12-78); ALBUMIN 3.1 G/DL (3.4-5.0); ALBUMIN/GLOBULIN RATIO 0.8 (1.1-1.5); ALKALINE PHOSPHATASE 49 IU/L (46-116); ANION GAP 7 (8-16); ASPARTATE AMINO TRANSFERASE 39 U/L (10-37); BILIRUBIN,TOTAL 0.8 MG/DL (0.1-1.0); BLOOD UREA NITROGEN 7 MG/DL (7-18); BUN/CREATININE RATIO 5.7 (5.4-32.0); CALCIUM 8.4 MG/DL (8.5-10.1); CHLORIDE 106 MMOL/L (99-107); CREATININE 1.23 MG/DL (0.60-1.10); GLUCOSE 149 MG/DL (70-104); MAGNESIUM 1.8 MG/DL (1.5-2.4); POTASSIUM 4.1 MMOL/L (3.5-5.1); SODIUM 137 MMOL/L (135-145); TOTAL CARBON DIOXIDE 24.1 MMOL/L (24-32); TOTAL PROTEIN 7.2 G/DL (6.4-8.2); eGFR 60 ML/MIN
[2021-08-31] MEDS: K and/or MAG REPLACEMENT MC SCH (08:00)
[2021-08-31] MEDS: pantoprazole 40mg Tablet.DR PO SCH (08:00)
[2021-08-31] MEDS: atorvastatin 20mg tablet PO SCH (08:00)
[2021-08-31] MEDS: metoprolol succinate 25mg (24-HOUR) SR. Tablet PO SCH (08:00)
[2021-08-31] MEDS: aspirin 81mg tab.chew PO SCH (08:00)
[2021-08-31] MEDS: docusate sod 100mg capsule PO SCH (08:00)
[2021-08-31] MEDS: finasteride 5mg tablet PO SCH (08:02)
[2021-08-31 10:00] VITALS: BP_SYST 127; BP_SYST 177; BP_DIAS 65; BP_DIAS 89
[2021-08-31] MEDS: dextrose 5%-water 1,000 ML IV SCH (14:33)
[2021-08-31] MEDS ORDERED: DOCU-148 PO (15:14)
== END 2021-08-31 17:15 | disposition home or self-care (01) | DRG 418 ==
LOC: ER 02:02 → ED HOLD 05:18 → ORTHO 4S 21:40 → OBSVTOIN 08-27 11:00 → PACU 08-30 20:38 → ORTHO 4S 08-30 22:43
PROVIDERS: ADMIT Internal Medicine; ATTEND Family Medicine
PROC: CF1C1ZZ Planar Nuclear Medicine Imaging of Hepatobiliary System, All using Technetium 99m (Tc-99m) (ICD-10-PCS; 2021-08-27)
PROC: 0DJ08ZZ Inspection of Upper Intestinal Tract, Via Natural or Artificial Opening Endoscopic (ICD-10-PCS; 2021-08-28)
PROC: 8E0W4CZ Robotic Assisted Procedure of Trunk Region, Percutaneous Endoscopic Approach (ICD-10-PCS; 2021-08-30)
PROC: 0FT44ZZ Resection of Gallbladder, Percutaneous Endoscopic Approach (ICD-10-PCS; principal; 2021-08-30 19:04)
DX: K80.10 Calculus of gallbladder with chronic cholecystitis without obstruction (principal); J98.11 Atelectasis; I10 Essential (primary) hypertension; I71.2 Thoracic aortic aneurysm, without rupture; I25.10 Atherosclerotic heart disease of native coronary artery without angina pectoris; Z20.822 Contact with and (suspected) exposure to COVID-19; E78.00 Pure hypercholesterolemia, unspecified; E78.5 Hyperlipidemia, unspecified; F12.90 Cannabis use, unspecified, uncomplicated; K21.9 Gastro-esophageal reflux disease without esophagitis; K59.00 Constipation, unspecified; N40.0 Benign prostatic hyperplasia without lower urinary tract symptoms; I48.91 Unspecified atrial fibrillation; Z98.52 Vasectomy status; Z86.73 Personal history of transient ischemic attack (TIA), and cerebral infarction without residual deficits; I25.2 Old myocardial infarction; Z88.8 Allergy status to other drugs, medicaments and biological substances
CPT/HCPCS: 36415; 43235; 71045; 71260; 74176; 74177; 74246; 76700; 78227; 80048; 80053; 80061; 80076; 80305; 80320; 82150; 83735; 83880; 84484; 85025; 85651; 86140; 86677; 87081; 90732; 93005; 96361; 96372; 96374; 96375; 99152; 99285; A4215; A4618; A4620; A6402; A7000; A9537; C9113; G0378; J0131; J0694; J1100; J1650; J2250; J2270; J2405; J2543; J2704; J2710; J2765; J2805; J3010; J3490; J7030; J7070; J7120; Q9963; Q9967; S0020

== ENCOUNTER 2023-12-07 13:20 | Outpatient (CLI) | payer MEDICARE, MEDICAID ==
[2023-12-07] VITALS (20 sets, daily range): BP systolic 138–158; BP diastolic 67–116; PULSE 62–74
[~2023-12-07 13:20] MED LIST changes: +APIX5TAB3 PO; +ATOR40TA72 PO; +BENZ-111 PO; -DILT-36 PO; +DOCU-148 PO; +FINA5TAB11 PO; -FLO0.4C PO; +HYDR-3964 PO; -MECL-159 PO; +METO-395 PO; +OMEP40CA21 PO
== END 2023-12-07 23:59 | disposition home or self-care (01) ==
LOC: CARD DIAG 13:20
PROVIDERS: ATTEND Internal Medicine Interventional Cardiology
DX: R55 Syncope and collapse (principal)
CPT/HCPCS: 93660

== ENCOUNTER 2024-12-17 11:51 | Outpatient (CLI) | payer MEDICARE, MEDICAID ==
[~2024-12-17 11:51] MED LIST changes: +iohexol 300mg/ml 100ml inj. ONE
--- NOTE | 2024-12-18 07:16 | RADIOLOGY REPORT ---
CLINICAL INDICATION: RIGHT SHOULDER PAIN COMPARISON: None TECHNIQUE: Multiplanar, multisequence MRI of the right shoulder was performed without contrast. Contrast: None FINDINGS: Glenohumeral joint: There is no fracture or bone marrow edema. Alignment is maintained. No focal a rticular cartilage defect. There is no joint effusion or synovitis. Acromioclavicular joint: The acromioclavicular joint is narrowed with capsular hypertrophy. There is a type 2 acromion. Rotator cuff and bursae: There is a partial-thickness supraspinatus tear involving the bursal surface fibers. There is partial-thickness infraspinatus articular surface tear. Subscapularis and teres min or tendons are intact. There is no regional muscle atrophy. There is trace fluid in the subacromial subdeltoid bursa. Biceps tendon and glenoid labrum: The long head biceps tendon is located within the bicipital groove and intact. There is a tear of the anterior superior glenoid labrum. Labrum is otherwise unremar kable. IMPRESSION: 1. Supraspinatus and infraspinatus tendinosis with partial-thickness tears in the right shoulder. No full-thickness rotator cuff tear. 2. AC joint arthrosis. Subacromial subdeltoid bursitis. 3. 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
== END 2024-12-17 23:59 | disposition home or self-care (01) ==
LOC: MRI02 11:51
PROVIDERS: ATTEND Pediatrics Sports Medicine
DX: S43.431A Superior glenoid labrum lesion of right shoulder, initial encounter (principal); M47.816 Spondylosis without myelopathy or radiculopathy, lumbar region; M51.370 Other intervertebral disc degeneration, lumbosacral region with discogenic back pain only; M25.511 Pain in right shoulder; M51.360 Other intervertebral disc degeneration, lumbar region with discogenic back pain only; M54.16 Radiculopathy, lumbar region; Z68.24 Body mass index [BMI] 24.0-24.9, adult; M76.60 Achilles tendinitis, unspecified leg; M19.011 Primary osteoarthritis, right shoulder; M75.121 Complete rotator cuff tear or rupture of right shoulder, not specified as traumatic; X58.XXXA Exposure to other specified factors, initial encounter; Y93.89 Activity, other specified; Y92.89 Other specified places as the place of occurrence of the external cause; Y99.8 Other external cause status
CPT/HCPCS: 73221; Q9967